=== PATIENT | female | born 1990 | race Caucasian/White ===

== ENCOUNTER 2020-05-21 15:56 | Inpatient (IN) ==
[2020-05-21 16:40] LABS: Appearance Urine Clear (Clear); Bilirubin Urine Negative (Negative); Blood Urine Negative (Negative); Color Urine Yellow; Glucose Urine UA Negative (Negative); Ketones Urine Negative (Negative); Leukocyte Esterase Urine Negative (Negative); Nitrite Urine Negative (Negative); Protein Urine Negative (Negative); Specific Gravity Urine 1.009 (1.000-1.030); Urobilinogen Urine Negative (Negative); pH Urine 5.5 (4.5-7.5)
[2020-05-21 16:45] LABS: Pregnancy Test, Urine Negative (Negative)
[2020-05-21 16:53] LABS: Basophils # (auto) 0.03 K/uL (0-0.2); Basophils % (auto) 0.5 %; Eosinophils # (auto) 0.07 K/uL (0-0.5); Eosinophils % (auto) 1.1 %; Hematocrit (blood only) 45.5 % (37-47); Hemoglobin 15.8 g/dL (12.0-16.0); Immature Granulocytes # (auto) 0.01 K/uL (0.00-0.02); Immature Granulocytes % (auto) 0.2 %; Lymphocytes # (auto) 1.12 K/uL (1.2-3.4); Lymphocytes % (auto) 17.5 %; Mean Corpuscular Hemoglobin 32.2 pg (25-34); Mean Corpuscular Hgb Conc 34.7 g/dL (32-36); Mean Corpuscular Volume 92.7 fL (80-100); Mean Platelet Volume 11.5 fL (7.4-10.4); Monocytes # (auto) 0.39 K/uL (0.11-0.59); Monocytes % (auto) 6.1 %; Neutrophils # (auto) 4.78 K/uL (1.4-6.5); Neutrophils % (auto) 74.6 %; Platelet Count 239 K/uL (130-400); RDW Standard Deviation 40.8 fL (36.4-46.3); Red Blood Count 4.91 M/uL (4.2-5.4)
[2020-05-21 17:03] LABS: Amphetamines+Metham, Urine Neg (Neg); Barbiturates, Urine Neg (Neg); Benzodiazepine, Urine Neg (Neg); Cocaine, Urine Neg (Neg); MDMA (Ecstacy), Urine Pos (Neg); Methadone, Urine Neg (Neg); Opiate, Urine Neg (Neg); Phencyclidine, Urine Neg (Neg)
[2020-05-21 17:11] LABS: BUN Creatinine Ratio 7.3 (10-20); Calcium 9.3 mg/dl (8.5-10.1); Creatinine Clr Calc Pharmacy 93.7 ml/min; Est GFR (African American) 100.2; Est GFR (Non-African American) 86.5; Potassium 3.8 mmol/L (3.5-5.1)
[2020-05-21 17:15] LABS: Acetaminophen < 2 ug/ml (10-30)
[2020-05-21 17:16] LABS: Salicylate 3.6 mg/dl (2.8-20)
[2020-05-21 17:21] LABS: Albumin Globulin Ratio 1.1 (0.9-2); Bilirubin,Total 0.4 mg/dl (0.2-1); Globulin 3.8 gm/dl (2.5-4.0); Thyroid Stimulating Hormone 1.3 uIu/ml (0.300-4.500); Total Protein 7.8 gm/dl (6.4-8.2)
[2020-05-21] MEDS ORDERED: LORazepam 1 MG TAB SL STA (19:55)
--- NOTE | 2020-05-21 20:03 | Emergency Department Note ---
Impression & Plan Suicidal ideation ED Provider Note NAME: CHRISTINA JENSEN AGE: 29 SEX: F ARRIVES VIA: Walk-In INFORMANT: Patient, ED PROVIDER(S): Brina Pickard MD CHIEF COMPLAINT: Suicidal ideation PLAN: Disposition: Condition: Good Referral: Inpatient MEDICAL DECISION MAKING: This patient was evaluated and appeared to be in no significant distress. The patient was forthcoming with her thoughts of suicide and her plan for overdose. She admits that today is the first day that she thought of overdosing on pills but it scared her and she felt unsafe with herself at home. She has multiple stressors including financial, work and relationship. The patient was medically cleared and evaluated by the psychiatric pillowcase turner. She became somewhat agitated when the discussion of inpatient stay was brought up. She felt that her "support system" would be from her. The patient was handed a questionnaire regarding her suicidal thoughts after this discussion and she again reiterated in written format her recurrent thoughts of suicide, thoughts of overdosing on pills, and that life was no longer worth living. At this time the patient will be referred for inpatient psychiatric care. She was given Ativan 1 mg sublingually in the emergency department. Triage Nursing notes reviewed. Prior medical records reviewed Vital Signs: reviewed and remarkable for no significant abnormalities Differential diagnosis: Mood disorder, infection, hypoglycemia, electrolyte abnormalities, cardiac sources, intracerebral event, toxicologic, trauma, neurologic, as well as other pathologies. ER treatment provided: SL ativan Laboratory studies: See below Consultation(s): 3 S. HPI: This patient is a 29-year-old female who presents emergency department with complaints of suicidal ideation. Patient states she is anxious and has "multiple things happening." She was referred to the emergency department by her therapist after the patient contacted her by phone. She called her as she was feeling unsafe at home. She began at 2 PM today having thoughts of overdosing on pills. She states she is having relationship issues as she and her are considering divorce. She is having difficulty with work. She is not eating well but denies any knowledge of significant weight loss. She states she has not sleeping well. The patient denies any significant alcohol intake or substance abuse otherwise. She states she is taking her prescribed medications regularly. She is scheduled to see [facility] in June for medication management, currently her PCP prescribes her medications. ROS: See above HPI for pertinent positives & negatives. A total of 10 systems reviewed and were otherwise negative. PAST MEDICAL HISTORY:See Below PAST SURGICAL HISTORY:See Below FAMILY HISTORY:See Below SOCIAL HISTORY:See Below HOME MEDICATIONS:See Below ALLERGIES:See Below PHYSICAL EXAMINATION: Vital signs reviewed. General: Well-appearing 29 yo female, in no significant distress. HEENT: No scleral icterus, PERRLA, neck supple. Atraumatic. Cardiovascular: Regular rate and rhythm, no extra sounds. Pulmonary: Clear to auscultation bilaterally, normal work of breathing. Abdomen: Soft, nontender, nondistended, positive bowel sounds. Musculoskeletal: Atraumatic, no peripheral edema. Neurologic: Patient awake alert and oriented x 3 Psych: Positive SI with plan, negative HI. Skin: Warm, dry, no rash Brina Pickard MD Past Med/Surg History Medical History Depression Social History Smoking Status: Never smoker Preferred Language: Iranian Communication Ability: Effective Utility Operator Required: No Beliefs That Will Affect Care: None marital status: Feels Safe at Home: Yes Assistive Devices: Glasses Allergies Allergies Allergy/AdvReac Type Severity Reaction Status Date / Time No Known Allergies Allergy Verified 05/21/20 16:32 Home Meds Home Medications Medication Instructions Recorded Confirmed dicyclomine 20 mg PO QID PRN 05/21/20 05/21/20 escitalopram oxalate [Lexapro] 20 mg PO HS 05/21/20 05/21/20 lorazepam 0.5 mg PO HS PRN 05/21/20 05/21/20 rizatriptan 0 mg PO .COMPLEX PRN 05/21/20 05/21/20 bupropion HCl 150 mg PO DAILY 05/22/20 05/22/20 norethindrone-e.estradiol-iron 1 tab PO HS 05/22/20 05/22/20 [05/21 ()] Results & Data (ED) Vital Signs Vital Signs - 24 hr 05/21/20 19:58 Pulse Rate [Right Finger] 108 H Respiratory Rate 20 Respiratory Effort / Characteristics Non-Labored Spontaneous Respiratory Depth Normal Respiratory Pattern Regular Blood Pressure [Right Arm] 127/98 Blood Pressure Mean [Right Arm] 107 Pulse Oximetry 98 Oxygen Delivery Method Room Air Home Medications Current Medication List: was personally reviewed by me Laboratory Data Attestation: I reviewed the patient's lab results. Result diagrams: 05/21/20 16:37 05/21/20 16:37 Lab Results 05/21/20 05/21/20 05/21/20 Range/Units 16:08 16:08 16:08 WBC (4.8-10.8) K/uL RBC (4.2-5.4) M/uL Hgb (12.0-16.0) g/dL Hct (37-47) % MCV (80-100) fL MCH (25-34) pg MCHC (32-36) g/dL RDW Std Deviation (36.4-46.3) fL RDW Coeff of Capo (11.5-14.5) % Plt Count (130-400) K/uL MPV (7.4-10.4) fL Immature Gran % (Auto) % Neut % (Auto) % Lymph % (Auto) % [place] % (Auto) % Eos % (Auto) % Baso % (Auto) % Neut # (Auto) (1.4-6.5) K/uL Lymph # (Auto) (1.2-3.4) K/uL [place] # (Auto) (0.11-0.59) K/uL Eos # (Auto) (0-0.5) K/uL Baso # (Auto) (0-0.2) K/uL Immature Gran # (Auto) (0.00-0.02) K/uL Sodium (136-145) mmol/L Potassium (3.5-5.1) mmol/L Chloride (98-107) mmol/L Carbon Dioxide (21-32) mmol/L Anion Gap (3-11) BUN (7-18) mg/dl Creatinine (0.6-1.2) mg/dl Est Cr Clr Drug Dosing ml/min Est GFR ( Amer) Est GFR (Non-Af Amer) BUN/Creatinine Ratio (10-20) Glucose (70-99) mg/dl Calcium (8.5-10.1) mg/dl Total Bilirubin (0.2-1) mg/dl AST (15-37) U/L ALT (12-78) U/L Alkaline Phosphatase (45-117) U/L Total Protein (6.4-8.2) gm/dl Albumin (3.4-5.0) gm/dl Globulin (2.5-4.0) gm/dl Albumin/Globulin Ratio (0.9-2) TSH (0.300-4.500) uIu/ml Urine Color Yellow Urine Appearance Clear (Clear) Urine pH 5.5 (4.5-7.5) Ur Specific [place] 1.009 (1.000-1.030) Urine Protein Negative (Negative) Urine Glucose (UA) Negative (Negative) Urine Ketones Negative (Negative) Urine Blood Negative (Negative) Urine Nitrite Negative (Negative) Urine Bilirubin Negative (Negative) Urine Urobilinogen Negative (Negative) Ur Leukocyte Esterase Negative (Negative) Urine Test Negative (Negative) Salicylates (2.8-20) mg/dl Urine Opiates Screen Neg (Neg) Ur Methadone, Qual Neg (Neg) Acetaminophen (10-30) ug/ml Urine Barbiturates Neg (Neg) Ur Phencyclidine (PCP) Neg (Neg) U Amphetamin/Meth Scrn Neg (Neg) MDMA (Ecstasy) Screen Pos H (Neg) U Benzodiazepines Scrn Neg (Neg) Ur Cocaine Metabolite Neg (Neg) U Marijuana (THC) Screen Neg (Neg) Ethyl Alcohol mg/dL (0-3) mg/dl 05/21/20 05/21/20 05/21/20 Range/Units 16:37 16:37 16:37 WBC 6.40 (4.8-10.8) K/uL RBC 4.91 (4.2-5.4) M/uL Hgb 15.8 (12.0-16.0) g/dL Hct 45.5 (37-47) % MCV 92.7 (80-100) fL MCH 32.2 (25-34) pg MCHC 34.7 (32-36) g/dL RDW Std Deviation 40.8 (36.4-46.3) fL RDW Coeff of Capo 12.0 (11.5-14.5) % Plt Count 239 (130-400) K/uL MPV 11.5 H (7.4-10.4) fL Immature Gran % (Auto) 0.2 % Neut % (Auto) 74.6 % Lymph % (Auto) 17.5 % [place] % (Auto) 6.1 % Eos % (Auto) 1.1 % Baso % (Auto) 0.5 % Neut # (Auto) 4.78 (1.4-6.5) K/uL Lymph # (Auto) 1.12 L (1.2-3.4) K/uL [place] # (Auto) 0.39 (0.11-0.59) K/uL Eos # (Auto) 0.07 (0-0.5) K/uL Baso # (Auto) 0.03 (0-0.2) K/uL Immature Gran # (Auto) 0.01 (0.00-0.02) K/uL Sodium 137 (136-145) mmol/L Potassium 3.8 (3.5-5.1) mmol/L Chloride 106 (98-107) mmol/L Carbon Dioxide 25 (21-32) mmol/L Anion Gap 6.0 (3-11) BUN 7 (7-18) mg/dl Creatinine 0.91 (0.6-1.2) mg/dl Est Cr Clr Drug Dosing 93.7 ml/min Est GFR ( Amer) 100.2 Est GFR (Non-Af Amer) 86.5 BUN/Creatinine Ratio 7.3 L (10-20) Glucose 101 H (70-99) mg/dl Calcium 9.3 (8.5-10.1) mg/dl Total Bilirubin 0.4 (0.2-1) mg/dl AST 8 L (15-37) U/L ALT 16 (12-78) U/L Alkaline Phosphatase 59 (45-117) U/L Total Protein 7.8 (6.4-8.2) gm/dl Albumin 4.0 (3.4-5.0) gm/dl Globulin 3.8 (2.5-4.0) gm/dl Albumin/Globulin Ratio 1.1 (0.9-2) TSH 1.300 (0.300-4.500) uIu/ml Urine Color Urine Appearance (Clear) Urine pH (4.5-7.5) Ur Specific [place] (1.000-1.030) Urine Protein (Negative) Urine Glucose (UA) (Negative) Urine Ketones (Negative) Urine Blood (Negative) Urine Nitrite (Negative) Urine Bilirubin (Negative) Urine Urobilinogen (Negative) Ur Leukocyte Esterase (Negative) Urine Test (Negative) Salicylates 3.6 (2.8-20) mg/dl Urine Opiates Screen (Neg) Ur Methadone, Qual (Neg) Acetaminophen < 2 L (10-30) ug/ml Urine Barbiturates (Neg) Ur Phencyclidine (PCP) (Neg) U Amphetamin/Meth Scrn (Neg) MDMA (Ecstasy) Screen (Neg) U Benzodiazepines Scrn (Neg) Ur Cocaine Metabolite (Neg) U Marijuana (THC) Screen (Neg) Ethyl Alcohol mg/dL (0-3) mg/dl 05/21/20 Range/Units 16:37 WBC (4.8-10.8) K/uL RBC (4.2-5.4) M/uL Hgb (12.0-16.0) g/dL Hct (37-47) % MCV (80-100) fL MCH (25-34) pg MCHC (32-36) g/dL RDW Std Deviation (36.4-46.3) fL RDW Coeff of Capo (11.5-14.5) % Plt Count (130-400) K/uL MPV (7.4-10.4) fL Immature Gran % (Auto) % Neut % (Auto) % Lymph % (Auto) % [place] % (Auto) % Eos % (Auto) % Baso % (Auto) % Neut # (Auto) (1.4-6.5) K/uL Lymph # (Auto) (1.2-3.4) K/uL [place] # (Auto) (0.11-0.59) K/uL Eos # (Auto) (0-0.5) K/uL Baso # (Auto) (0-0.2) K/uL Immature Gran # (Auto) (0.00-0.02) K/uL Sodium (136-145) mmol/L Potassium (3.5-5.1) mmol/L Chloride (98-107) mmol/L Carbon Dioxide (21-32) mmol/L Anion Gap (3-11) BUN (7-18) mg/dl Creatinine (0.6-1.2) mg/dl Est Cr Clr Drug Dosing ml/min Est GFR ( Amer) Est GFR (Non-Af Amer) BUN/Creatinine Ratio (10-20) Glucose (70-99) mg/dl Calcium (8.5-10.1) mg/dl Total Bilirubin (0.2-1) mg/dl AST (15-37) U/L ALT (12-78) U/L Alkaline Phosphatase (45-117) U/L Total Protein (6.4-8.2) gm/dl Albumin (3.4-5.0) gm/dl Globulin (2.5-4.0) gm/dl Albumin/Globulin Ratio (0.9-2) TSH (0.300-4.500) uIu/ml Urine Color Urine Appearance (Clear) Urine pH (4.5-7.5) Ur Specific [place] (1.000-1.030) Urine Protein (Negative) Urine Glucose (UA) (Negative) Urine Ketones (Negative) Urine Blood (Negative) Urine Nitrite (Negative) Urine Bilirubin (Negative) Urine Urobilinogen (Negative) Ur Leukocyte Esterase (Negative) Urine Test (Negative) Salicylates (2.8-20) mg/dl Urine Opiates Screen (Neg) Ur Methadone, Qual (Neg) Acetaminophen (10-30) ug/ml Urine Barbiturates (Neg) Ur Phencyclidine (PCP) (Neg) U Amphetamin/Meth Scrn (Neg) MDMA (Ecstasy) Screen (Neg) U Benzodiazepines Scrn (Neg) Ur Cocaine Metabolite (Neg) U Marijuana (THC) Screen (Neg) Ethyl Alcohol mg/dL < 3.0 (0-3) mg/dl Administered Medications Acetaminophen (Acetaminophen 325 Mg Tab) 650 mg PO Q4H PRN PRN Reason: Headache or Minor Fever Stop: 06/20/20 21:49 Last Admin: 05/22/20 00:09 Dose: 650 mg Documented by: [id number] Bupropion HCl (Bupropion Xl 150 Mg Tabcr) 150 mg PO DAILY NICKY Stop: 06/21/20 11:14 Last Admin: 05/22/20 12:37 Dose: 150 mg Documented by: [id number] Hydroxyzine HCl (Hydroxyzine Hcl 25 Mg Tab) 50 mg PO HSZ PRN PRN Reason: Insomnia Stop: 06/20/20 21:49 Last Admin: 05/22/20 01:15 Dose: 50 mg Documented by: [id number] Discontinued Medications Lorazepam (Lorazepam 1 Mg Tab) 1 mg SL NOW STA Stop: 05/21/20 19:56 Last Admin: 05/21/20 20:10 Dose: 1 mg Documented by: [id number] Discharge Plan Visit Data Chief Complaint: Mental Health Evaluation Stated Complaint: [facility] ED Provider: Brina Pickard Discharge Problem: Suicidal ideation Patient Disposition: Admitted As Inpatient Discharge Instructions Interventions: ED Discharge Assessment Last Done: 05/21/20 22:17
[2020-05-21] MEDS ORDERED: BISMUTH SUBSALICYLATE LIQD 236 ML PO PRN (21:50)
[2020-05-21] MEDS ORDERED: hydrOXYzine HCl 25 MG TAB PO PRN ×2 (21:50)
[2020-05-21] MEDS ORDERED: MAGNESIUM HYDROXIDE SUSP 30 ML UDC PO PRN (21:50)
[2020-05-21] MEDS ORDERED: SODIUM CHLORIDE 0.65% NA SOLN 45 ML (OCEAN) PRN (21:50)
[2020-05-21] MEDS ORDERED: ACETAMINOPHEN 325 MG TAB PO PRN (21:50)
[2020-05-21] MEDS ORDERED: ALUMINUM/MAGNESIUM SUSP 30 ML UDC PO PRN (21:50)
--- NOTE | 2020-05-22 09:06 | History & Physical ---
Date of Service May 22, 2020 Impression / Recommendations (1) Suicidal ideation: Continue voluntary hospitalization, suicide checks for safety. Encourage group attendance and participation, work on healthy coping skills and discharge safety plan. Family meeting as appropriate (2) Depression: 05/22 - Reviewed diagnoses and treatment options, including medications and therapy. Reviewed medication options including continuing current medications and giving them more time to see full effect, trial of a different SSRI or SNRI. After discussion of options she opted to continue with her current medications. She would like to focus on working on self compassion. Coordinate w/ her OP therapy and [facility]/OP treatment. Active/Remission status: currently active Depression Type: major depressive disorder Major depression episode severity: severe Major depression recurrence: recurrent Psychotic features: without psychotic features Qualified Code(s): F33.2 - Major depressive disorder, recurrent severe without psychotic features (3) Anxiety: 05/22 - CURTIS with panic, continue home medications, including lorazepam prn, can also offer hydroxyzine prn Risk Factors Assessment Male: No : Yes Health Problems: No Mental Health Diagnoses: Yes Substance Use Disorders: No Previous Attempt: No Family History of Suicide: No Previous Psychiatric Hospitalization: No Hopelessness: Yes Smoker: No Protective Factors Assessment : Yes Responsible for Young Children: No Employed: Yes Stable Relationships: No Good Rapport with Provider: Yes Psychiatric History Identifying Data CHRISTINA JENSEN is a 29-year-old F who currently lives in [place], has a history of depression and anxiety, treated by her PCP, and was admitted on 05/21/20 21:50 on a 201 voluntary commitment for depression and suicidality. Chief Complaint "Yesterday I had a panic attack, and I recently relapsed into self harming...and the thought came into my mind that I could just take a bunch of Aspirin". History of Present Illness Patient presented to the ER with depression and suicidal thoughts with a plan to overdose. She reported multiple stressors, including marital strain and problems at work. She was tearful throughout the ER assessment, and reported struggling with depression since she was a teenager, with worsening over the past 2 months. She found it increasingly difficult to get out of bed, reported frequent crying spells, lack of motivation, decreased appetite, difficulty sleeping, and increased anxiety. She reported difficulty falling and staying asleep, getting 4-6 hours a night. She reported passive suicidal thoughts in the past, thinking that if something happened to her and she she would not care, which recently progressed to plans to overdose and access to medications at home. She did not feel safe at home, so came to the ER. She reported a history of cutting as a teen, and recently started cutting herself again, using a knife on her arms. Last episode of cutting was about 2 days ago, and she had superficial cuts on her left arm. Admission labs normal with the exception of UDS + MDMA (on Wellbutrin, confirmatory pending). She signed in voluntarily for treatment. On my assessment, she reports worsening mood and anxiety for the past 2 months, with acute worsening yesterday in the context of a panic attack, as she felt overwhelmed, a sense of derealization, and thought about taking an overdose of Aspirin to end her life. She came to the hospital "to be somewhere where I feel safe, be somewhere secure." She reports panic with "crying until I throw up," hyperventilating and feeling restless and a sense of unease, which occurred approximately 6 times in the past year, typically triggered by relationship stress. Her panic attack yesterday was triggered by issues she has been working through in therapy, revolving around her marriage and feeling that her emotional needs aren't met, falling in love with a coworker and having an affair with him, and his and her finding out in Nov. She has been experiencing significant guilt and negative thoughts about herself, worried about her job security, and how to interact with the man at work. She and her have been working on their relationship, but the coworker has cut off all contact with her, although they still have to collaborate on work projects, and have been trying to do so via email. She feels guilty about the affair but also feels she is grieving the loss of the relationship, and can't be open with her about that. She is looking for another job which could relieve the job stress, but also considering moving back home to the [place] area, and undecided about rebuilding or ending her marriage. Yesterday she was trying to communicate with her coworker "to get some kind of closure" and understand how he could cut the relationship off after he'd told her he needed her to be in his life, and feels he has given her mixed messages. He was "cold" when they spoke and "my heart broke." She had another meeting with him and others from work later in the day and cried throughout it. She has been hurt by him ignoring her when she's tried to reach out to him, feels he moved on quickly and doesn't miss her. She reports guilt and shame, feeling "I did this to myself, what did I expect would happen." Mood was better when she was off work over the holidays, as she was able to focus on other things, but worsened when she returned to work earlier this month and had contact with him again. She has been on escitalopram since college, was stable on 10mg for a time (although thinks it has caused decreased sex drive), and it was increased from 10mg to 20mg in 07/2019. Bupropion was added a week ago as she was struggling to get out of bed and function, everything took an effort. She was keeping up with work, but only the bare minimum. She felt jittery the first day, and the next day energy was excessive, was shaky, sweaty palms, and dry mouth, which have continued off and on since then but improving overall. She enjoys making art, painting, but has struggled to engage in those activities due to low motivation and energy. Her appetite has been decreased, not eating much throughout the day, but bingeing at night. Denies changes in weight. Her PCP prescribed Ativan about 2 months ago, which she has been taking about every other night, with only minimal effect. Has also tried Zquil, melatonin, and breathing exercises with little benefit. Tends to ruminate at night. No h/o lorenzo, psychosis. Past Psychiatric History Previous Psych History: First diagnosed with depression and CURTIS in college (in the context of relationship stressors), saw a psychiatrist in her hometown in [place] and was started on escitalopram, which she has been on since. Saw that psychiatrist for several years until she retired, then transferred care to her PCP, as symptoms were stable. CBT in college. She saw a psychiatrist through [facility] in 01/2020, but didn't want to continue with that person. Current Psychiatric Diagnosis: Generalized anxiety, depression Outpatient Services: Has an initial evaluation scheduled at [facility] in June. Therapist: Klarissa Escalante at [facility] since 08/2019. PCP, Dr. Rachael Samayoa, is prescribing antidepressants currently. Previous Psych Admissions: Denies History of Previous Suicide Attempt: No Past Medication Trials: None Allergies Allergy/AdvReac Type Severity Reaction Status Date / Time No Known Allergies Allergy Verified 05/21/20 16:32 Home Medications Medication Instructions Recorded Confirmed Type dicyclomine 20 mg PO QID PRN 05/21/20 05/21/20 History escitalopram oxalate [Lexapro] 20 mg PO HS 05/21/20 05/21/20 History lorazepam 0.5 mg PO HS PRN 05/21/20 05/21/20 History rizatriptan 0 mg PO .COMPLEX PRN 05/21/20 05/21/20 History bupropion HCl 150 mg PO DAILY 05/22/20 05/22/20 History norethindrone-e.estradiol-iron 1 tab PO HS 05/22/20 05/22/20 History [05/21 (28)] Alcohol History Hx of Alcohol Use Over the Past 12 Months: Yes (Social, twice monthly) AUDIT Total Score: 2 Smoking Use Have You Smoked or Used Tobacco Products in the Last 30 Days: No Smoking Status: Never smoker Substance History Hx of Prescription Med Misuse Over the Past 12 Months: No Hx of Over the Counter Med Misuse Over the Past 12 Months: No Hx of Inhalent Misuse Over the Past 12 Months: No Hx of Organic Substance Use Over the Past 12 Months: No Hx of Illegal Substances/Street Drug Use Over Past 12 Months: No Problems as a Result of Past Substance Use: None Identified Personal History Living Arrangements: Home Living Arrangements Comments: In [place] with her Childhood: From the [place] area Highest Grade Completed: College 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) Marital Status: (For a little over a year, but contemplating separation or divorce) Beliefs That Will Affect Care: None Patient History Medical History (Updated 05/22/20 @ 09:03 by Regina Abreu MD) Depression Social History Smoking Status: Never smoker Preferred Language: Swedish Communication Ability: Effective Retail Worker Required: No Beliefs That Will Affect Care: None Feels Safe at Home: Yes Assistive Devices: Glasses Review of Systems Review of Systems: All systems reviewed & are unremarkable except as noted in Subjective Physical Exam Psychiatric: Orientation: alert, oriented x 3 and cooperative Apperance: appropriately dressed, appropriately groomed and appeared stated age Eye Contact: good eye contact Motor Behavior: steady gait and station and no abnormal motor movements Speech: normal rate/rhythm/volume of speech Af fect: + depressed affect, + anxious affect and mood congruent with affect Mood: + depressed mood and + anxious mood Thought Process: goal directed thought process and linear/logical thought process Thought Content: reality based without delusions and + guilt Suicidal Thoughts: denies suicidal thoughts Homicidal Thoughts: denies homicidal thoughts Hallucinations: no auditory hallucinations and no visual hallucinations Cognition: recent memory grossly intact, remote memory grossly intact, attention grossly intact and language grossly intact Estimated Intelligence: + above average estimated intelligence Insight: good insight Judgement: good judgement Vital Signs (Past 24 Hours): Last Vital Signs Temp 36.6 C 05/22/20 06:32 Pulse 77 05/22/20 06:33 Resp 16 05/22/20 06:32 BP 138/92 05/22/20 06:33 Pulse Ox 99 05/21/20 22:17 Results & Data ([facility]) Laboratory Results Laboratory Results - last 24 hr 05/21/20 05/21/20 05/21/20 16:08 16:08 16:08 WBC RBC Hgb Hct MCV MCH MCHC RDW Std Deviation RDW Coeff of Capo Plt Count MPV Immature Gran % (Auto) Neut % (Auto) Lymph % (Auto) Colbert % (Auto) Eos % (Auto) Baso % (Auto) Neut # (Auto) Lymph # (Auto) Colbert # (Auto) Eos # (Auto) Baso # (Auto) Immature Gran # (Auto) Sodium Potassium Chloride Carbon Dioxide Anion Gap BUN Creatinine Est Cr Clr Drug Dosing Est GFR ( Amer) Est GFR (Non-Af Amer) BUN/Creatinine Ratio Glucose Calcium Total Bilirubin AST ALT Alkaline Phosphatase Total Protein Albumin Globulin Albumin/Globulin Ratio TSH Urine Color Yellow Urine Appearance Clear Urine pH 5.5 Ur Specific [place] 1.009 Urine Protein Negative Urine Glucose (UA) Negative Urine Ketones Negative Urine Blood Negative Urine Nitrite Negative Urine Bilirubin Negative Urine Urobilinogen Negative Ur Leukocyte Esterase Negative Urine Test Negative Salicylates Urine Opiates Screen Neg Ur Methadone, Qual Neg Acetaminophen Urine Barbiturates Neg Ur Phencyclidine (PCP) Neg U Amphetamin/Meth Scrn Neg Urine MDEA MDMA (Ecstasy) Screen Pos H MDMA Urine MDMA U Benzodiazepines Scrn Neg Ur Cocaine Metabolite Neg U Marijuana (THC) Screen Neg Ethyl Alcohol mg/dL SARS-CoV-2 Ag (Rapid) 05/21/20 05/21/20 05/21/20 16:08 16:37 16:37 WBC 6.40 RBC 4.91 Hgb 15.8 Hct 45.5 MCV 92.7 MCH 32.2 MCHC 34.7 RDW Std Deviation 40.8 RDW Coeff of Capo 12.0 Plt Count 239 MPV 11.5 H Immature Gran % (Auto) 0.2 Neut % (Auto) 74.6 Lymph % (Auto) 17.5 Colbert % (Auto) 6.1 Eos % (Auto) 1.1 Baso % (Auto) 0.5 Neut # (Auto) 4.78 Lymph # (Auto) 1.12 L Colbert # (Auto) 0.39 Eos # (Auto) 0.07 Baso # (Auto) 0.03 Immature Gran # (Auto) 0.01 Sodium 137 Potassium 3.8 Chloride 106 Carbon Dioxide 25 Anion Gap 6.0 BUN 7 Creatinine 0.91 Est Cr Clr Drug Dosing 93.7 Est GFR ( Amer) 100.2 Est GFR (Non-Af Amer) 86.5 BUN/Creatinine Ratio 7.3 L Glucose 101 H Calcium 9.3 Total Bilirubin 0.4 AST 8 L ALT 16 Alkaline Phosphatase 59 Total Protein 7.8 Albumin 4.0 Globulin 3.8 Albumin/Globulin Ratio 1.1 TSH 1.300 Urine Color Urine Appearance Urine pH Ur Specific [place] Urine Protein Urine Glucose (UA) Urine Ketones Urine Blood Urine Nitrite Urine Bilirubin Urine Urobilinogen Ur Leukocyte Esterase Urine Test Salicylates Urine Opiates Screen Ur Methadone, Qual Acetaminophen Urine Barbiturates Ur Phencyclidine (PCP) U Amphetamin/Meth Scrn Urine MDEA Pending MDMA (Ecstasy) Screen MDMA Pending Urine MDMA Pending U Benzodiazepines Scrn Ur Cocaine Metabolite U Marijuana (THC) Screen Ethyl Alcohol mg/dL SARS-CoV-2 Ag (Rapid) 05/21/20 05/21/20 05/21/20 16:37 16:37 Unknown WBC RBC Hgb Hct MCV MCH MCHC RDW Std Deviation RDW Coeff of Capo Plt Count MPV Immature Gran % (Auto) Neut % (Auto) Lymph % (Auto) Colbert % (Auto) Eos % (Auto) Baso % (Auto) Neut # (Auto) Lymph # (Auto) Colbert # (Auto) Eos # (Auto) Baso # (Auto) Immature Gran # (Auto) Sodium Potassium Chloride Carbon Dioxide Anion Gap BUN Creatinine Est Cr Clr Drug Dosing Est GFR ( Amer) Est GFR (Non-Af Amer) BUN/Creatinine Ratio Glucose Calcium Total Bilirubin AST ALT Alkaline Phosphatase Total Protein Albumin Globulin Albumin/Globulin Ratio TSH Urine Color Urine Appearance Urine pH Ur Specific [place] Urine Protein Urine Glucose (UA) Urine Ketones Urine Blood Urine Nitrite Urine Bilirubin Urine Urobilinogen Ur Leukocyte Esterase Urine Test Salicylates 3.6 Urine Opiates Screen Ur Methadone, Qual Acetaminophen < 2 L Urine Barbiturates Ur Phencyclidine (PCP) U Amphetamin/Meth Scrn Urine MDEA MDMA (Ecstasy) Screen MDMA Urine MDMA U Benzodiazepines Scrn Ur Cocaine Metabolite U Marijuana (THC) Screen Ethyl Alcohol mg/dL < 3.0 SARS-CoV-2 Ag (Rapid) Negative Current Inpatient Medications Current Inpatient Medications: Current Inpatient Medications Acetaminophen (Acetaminophen 325 Mg Tab) 650 mg PO Q4H PRN PRN Reason: Headache or Minor Fever Stop: 06/20/20 21:49 Last Admin: 05/22/20 00:09 Dose: 650 mg Documented by: Al Hydrox/Mg Hydrox/Simethicone (Aluminum/Magnesium Susp 30 Ml Udc) 30 ml PO Q4H PRN PRN Reason: GI Upset Stop: 06/20/20 21:49 Bismuth Subsalicylate (Bismuth Subsalicylate Liqd 236 Ml) 15 ml PO PRN PRN PRN Reason: Loose Stool Stop: 06/20/20 21:49 Hydroxyzine HCl (Hydroxyzine Hcl 25 Mg Tab) 50 mg PO HSZ PRN PRN Reason: Insomnia Stop: 06/20/20 21:49 Last Admin: 05/22/20 01:15 Dose: 50 mg Documented by: Hydroxyzine HCl (Hydroxyzine Hcl 25 Mg Tab) 25 mg PO Q4H PRN PRN Reason: Anxiety Stop: 06/20/20 21:49 Magnesium Hydroxide (Magnesium Hydroxide Susp 30 Ml Udc) 30 ml PO DAILY PRN PRN Reason: Constipation Stop: 02/19/21 21:49 Sodium Chloride (Sodium Chloride 0.65% Na Soln 45 Ml ([employer])) 1 - 2 sprays NA PRN PRN PRN Reason: Nasal Dryness/Congestion Stop: 06/20/20 21:49
[2020-05-22] MEDS ORDERED: DICYCLOMINE HCL 20 MG TAB PO PRN (10:20)
[2020-05-22] MEDS ORDERED: RIZATRIPTAN BENZOATE MLT 10 MG TAB PO PRN (10:25)
[2020-05-22] MEDS ORDERED: buPROPion SR 150 MG TABCR PO SCH (10:45)
[2020-05-22] MEDS: buPROPion XL 150 MG TABCR PO SCH (12:37)
[2020-05-22] MEDS: ESCITALOPRAM OXALATE 20 MG TAB PO SCH (21:29)
[2020-05-22] MEDS: JUNEL FE PO SCH (21:30)
[2020-05-22] MEDS: LORazepam 0.5 MG TAB PO PRN (23:50)
--- NOTE | 2020-05-23 09:41 | Psychiatric Progress Note ---
Date of Service May 23, 2020 Impression / Recommendations (1) Suicidal ideation: Continue voluntary hospitalization, suicide checks for safety. Encourage group attendance and participation, work on healthy coping skills and discharge safety plan. Family meeting as appropriate 05/23 - Pt now denying SI - Family meeting today with - Pt encouraged to begin working on her written safety plan (2) Depression: 05/22 - Reviewed diagnoses and treatment options, including medications and therapy. Reviewed medication options including continuing current medications and giving them more time to see full effect, trial of a different SSRI or SNRI. After discussion of options she opted to continue with her current medications. She would like to focus on working on self compassion. Coordinate w/ her OP therapy and [place]/OP treatment. 05/23 - Continue current medication regimen - we did discuss brief symptoms of "jitteriness", shaking, increased productivity, and difficulty concentrating for 1-2 days after starting bupropion (prior to hospitalization). Pt educated signs and symptoms of bipolar disorder and encouraged to continue to monitor, especially with future medication adjustments. Pt does report having an uncle with bipolar disorder. - Family meeting conducted today via phone with , patient perceived the meeting went well and both are considering couples counseling - Continue to encourage participation in group and recreational programming, as well as development of healthy and effective coping strategies - Pt encouraged to begin working on her written safety plan (3) Anxiety: 05/22 - CURTIS with panic, continue home medications, including lorazepam prn, can also offer hydroxyzine prn 05/23 - Continue as above, encourage development of healthy and effective coping s trategies - Continue individual therapy as outpatient Risk Factors Assessment Male: No : Yes Health Problems: No Mental Health Diagnoses: Yes Substance Use Disorders: No Previous Attempt: No Family History of Suicide: No Previous Psychiatric Hospitalization: No Hopelessness: Yes Smoker: No Protective Factors Assessment : Yes Responsible for Young Children: No Employed: Yes Stable Relationships: No Good Rapport with Provider: Yes Interval History Identifying Information CHRISTINA JENSEN is a 29-year-old F who currently lives in [place], has a history of depression and anxiety, treated by her PCP, and was admitted on 05/21/20 21:50 on a 201 voluntary commitment for depression and suicidality. Chief Complaint "I guess the best way I can describe how helpful this has been is like, it was the pause button I needed." Review of Systems Notes Constitutional: admits to poor sleep at baseline, worse in hospital setting Cardiovascular: denied Respiratory: denied Gastrointestinal: denied Neurological: denied Psychiatric: denies symptoms other than stated above Total of at least 10 systems reviewed, pertinent positives as above and in HPI. Sleep Information Total Hours of Sleep: 4.5 Meal Information Percent Meal Consumed - Lunch: 75 Percent Meal Consumed - Dinner: 90 Subjective Subjective Patient was seen & assessed and interval progress reviewed with treatment team. Staff report the patient has been participating in group programming, often engaging in long 1:1 sessions with staff when able. She demonstrates good insight during these conversations. Pt rated her mood a 6/10 and "slightly anxious" last evening. Pt was seen today to assess progress since admission, following a phone meeting with her and our child welfare social worker. Pt states she feels her stay has been helpful - "it was the pause button I needed." Pt states that she feels she is ready to "start the healing stage" after the end of an extramarital relationship, recognizing her focus is on communication with her but simultaneous focused on grief as well. Pt is open to couple's counseling and is hoping to work with her to arrange this. Pt states she has been surprised by "the way I was thinking and approaching things", recognizing things were "unhealthy and not sustainable, I'm surprised I lasted in that mindset for 2 months." Pt denies continued SI and reports "I feel better now than I have in the past month." We did review her medication regimen, although recognizing she had requested to keep medications unchanged. That conversation allowed patient to express some brief side effects she experienced for 1-2 days after starting bupropion. Pt states she felt "jittery", as though her heart was racing, and shaking in her hands/feet. Pt also admits that she felt "almost manic", reporting "I got a crap load of work done" and that she had some difficulty thinking/concentrating. This led to a conversation about a possible bipolar component to the patient's mood. She admits all of these concerns quickly resolved, but was encouraged to closely monitor for recurrence. Pt was also encouraged to disclose these symptoms to her outpatient providers prior to considering any other medication adjustments. Pt denied other needs at this time and does feel she is close to being ready to return home. Physical Exam Psychiatric Orientation: alert, oriented x 3 and cooperative (and pleasant) Apperance: appropriately dressed, appropriately groomed and appeared stated age Eye Contact: good eye contact Motor Behavior: steady gait and station and no abnormal motor movements Speech: normal rate/rhythm/volume of speech Affect: + blunted affect (mildly subdued) and mood congruent with affect Mood: + depressed mood (reports "I still feel sad, but not hopeless") and + anxious mood ("slightly anxious still") Thought Process: goal directed thought process, clear/coherent thought process and thought association intact Thought Content: reality based without delusions; no hopelessness and no worthlessness Suicidal Thoughts: denies suicidal thoughts, denies suicidal plan and denies suicidal intent Homicidal Thoughts: denies homicidal thoughts Hallucinations: no auditory hallucinations and no visual hallucinations Cognition: recent memory grossly intact, attention grossly intact and language grossly intact Estimated Intelligence: + above average estimated intelligence Insight: good insight Judgement: + fair judgement Vital Signs (Past 24 Hours) Last Vital Signs Temp 36.5 C 05/23/20 06:32 Pulse 92 H 05/23/20 06:32 Resp 16 05/23/20 06:32 BP 133/86 05/23/20 06:32 Pulse Ox 99 05/21/20 22:17 Results & Data ([facility]) Current Inpatient Medications Current Inpatient Medications: Current Inpatient Medications Acetaminophen (Acetaminophen 325 Mg Tab) 650 mg PO Q4H PRN PRN Reason: Headache or Minor Fever Stop: 06/20/20 21:49 Last Admin: 05/22/20 00:09 Dose: 650 mg Documented by: Al Hydrox/Mg Hydrox/Simethicone (Aluminum/Magnesium Susp 30 Ml Udc) 30 ml PO Q4H PRN PRN Reason: GI Upset Stop: 06/20/20 21:49 Bismuth Subsalicylate (Bismuth Subsalicylate Liqd 236 Ml) 15 ml PO PRN PRN PRN Reason: Loose Stool Stop: 06/20/20 21:49 Bupropion HCl (Bupropion Xl 150 Mg Tabcr) 150 mg PO DAILY NICKY Stop: 06/21/20 11:14 Last Admin: 05/22/20 12:37 Dose: 150 mg Documented by: Dicyclomine HCl (Dicyclomine Hcl 20 Mg Tab) 20 mg PO QID PRN PRN Reason: Abdominal Discomfort Stop: 06/21/20 10:19 Escitalopram Oxalate (Escitalopram Oxalate 20 Mg Tab) 20 mg PO HS NICKY Stop: 06/21/20 21:59 Last Admin: 05/22/20 21:29 Dose: 20 mg Documented by: Hydroxyzine HCl (Hydroxyzine Hcl 25 Mg Tab) 50 mg PO HSZ PRN PRN Reason: Insomnia Stop: 06/20/20 21:49 Last Admin: 05/22/20 01:15 Dose: 50 mg Documented by: Hydroxyzine HCl (Hydroxyzine Hcl 25 Mg Tab) 25 mg PO Q4H PRN PRN Reason: Anxiety Stop: 06/20/20 21:49 Lorazepam (Lorazepam 0.5 Mg Tab) 0.5 mg PO HS PRN PRN Reason: Insomnia Stop: 06/21/20 10:19 Last Admin: 05/22/20 23:50 Dose: 0.5 mg Documented by: Magnesium Hydroxide (Magnesium Hydroxide Susp 30 Ml Udc) 30 ml PO DAILY PRN PRN Reason: Constipation Stop: 06/20/20 21:49 Non- Formulary Patient's Own Med 1 ea PO HS NICKY Stop: 06/21/20 21:59 Last Admin: 05/22/20 21:30 Dose: 1 mg Documented by: Rizatriptan Benzoate (Rizatriptan Benzoate [employer] 10 Mg Tab) 10 mg PO UD PRN PRN Reason: Migraine Headache Stop: 06/21/20 10:24 Last Admin: 05/23/20 01:36 Dose: 10 mg Documented by: Sodium Chloride (Sodium Chloride 0.65% Na Soln 45 Ml ([place])) 1 - 2 sprays NA PRN PRN PRN Reason: Nasal Dryness/Congestion Stop: 06/20/20 21:49 Mental Health & Subst Abuse Tx Psychiatrist Name of Psychiatrist: Darius Alanis Psychiatrist's Psychiatric Appointment Comment: [id number] [facility] Therapist Name of Therapist: Rahat Cyr Therapist's Therapy Appointment Comment: [address], [address], [place] [address] Veterinary Nurse Name of Veterinary Nurse: None Post Discharge Appointments Primary Care Physician Name Of Family Doctor: Rayo Samayoa Primary Care Provider Appointment Comment: [address] Contact Information Discharge Discharge Address: [id number] (1) Depression Active/Remission status: currently active Depression Type: major depressive disorder Major depression episode severity: severe Major depression recurrence: recurrent Psychotic features: without psychotic features Qualified Code(s): F33.2 - Major depressive disorder, recurrent severe without psychotic features
[2020-05-23] MEDS: buPROPion XL 150 MG TABCR PO SCH (10:37)
[2020-05-23] MEDS: ESCITALOPRAM OXALATE 20 MG TAB PO SCH (22:13)
[2020-05-23] MEDS: JUNEL FE PO SCH (22:13)
[2020-05-23] MEDS: LORazepam 0.5 MG TAB PO PRN (23:39)
[2020-05-24] MEDS: buPROPion XL 150 MG TABCR PO SCH (09:10)
--- NOTE | 2020-05-24 09:30 | Discharge Summary ---
Date of Service May 24, 2020 History of Present Illness Patient presented to the ER with depression and suicidal thoughts with a plan to overdose. She reported multiple stressors, including marital strain and problems at work. She was tearful throughout the ER assessment, and reported struggling with depression since she was a teenager, with worsening over the past 2 months. She found it increasingly difficult to get out of bed, reported frequent crying spells, lack of motivation, decreased appetite, difficulty sleeping, and increased anxiety. She reported difficulty falling and staying asleep, getting 4-6 hours a night. She reported passive suicidal thoughts in the past, thinking that if something happened to her and she she would not care, which recently progressed to plans to overdose and access to medications at home. She did not feel safe at home, so came to the ER. She reported a history of cutting as a teen, and recently started cutting herself again, using a knife on her arms. Last episode of cutting was about 2 days ago, and she had superficial cuts on her left arm. Admission labs normal with the exception of UDS + MDMA (on Wellbutrin, confirmatory pending). She signed in voluntarily for treatment. On my assessment, she reports worsening mood and anxiety for the past 2 months, with acute worsening yesterday in the context of a panic attack, as she felt overwhelmed, a sense of derealization, and thought about taking an overdose of Aspirin to end her life. She came to the hospital "to be somewhere where I feel safe, be somewhere secure." She reports panic with "crying until I throw up," hyperventilating and feeling restless and a sense of unease, which occurred approximately 6 times in the past year, typically triggered by relationship stress. Her panic attack yesterday was triggered by issues she has been working through in therapy, revolving around her marriage and feeling that her emotional needs aren't met, falling in love with a coworker and having an affair with him, and his and her finding out in Nov. She has been experiencing significant guilt and negative thoughts about herself, worried about her job security, and how to interact with the man at work. She and her have been working on their relationship, but the coworker has cut off all contact with her, although they still have to collaborate on work projects, and have been trying to do so via email. She feels guilty about the affair but also feels she is grieving the loss of the relationship, and can't be open with her about that. She is looking for another job which could relieve the job stress, but also considering moving back home to the [place] area, and undecided about rebuilding or ending her marriage. Yesterday she was trying to communicate with her coworker "to get some kind of closure" and understand how he could cut the relationship off after he'd told her he needed her to be in his life, and feels he has given her mixed messages. He was "cold" when they spoke and "my heart broke." She had another meeting with him and others from work later in the day and cried throughout it. She has been hurt by him ignoring her when she's tried to reach out to him, feels he moved on quickly and doesn't miss her. She reports guilt and shame, feeling "I did this to myself, what did I expect would happen." Mood was better when she was off work over the holidays, as she was able to focus on other things, but worsened when she returned to work earlier this month and had contact with him again. She has been on escitalopram since college, was stable on 10mg for a time (although thinks it has caused decreased sex drive), and it was increased from 10mg to 20mg in 07/2019. Bupropion was added a week ago as she was struggling to get out of bed and function, everything took an effort. She was keeping up with work, but only the bare minimum. She felt jittery the first day, and the next day energy was excessive, was shaky, sweaty palms, and dry mouth, which have continued off and on since then but improving overall. She enjoys making art, painting, but has struggled to engage in those activities due to low motivation and energy. Her appetite has been decreased, not eating much throughout the day, but bingeing at night. Denies changes in weight. Her PCP prescribed Ativan about 2 months ago, which she has been taking about every other night, with only minimal effect. Has also tried Zquil, melatonin, and breathing exercises with little benefit. Tends to ruminate at night. No h/o lorenzo, psychosis. Hospital COurse: Patient was continued on her Wellbutrin XL 150mg/AM, lexapro 20mg, and ativan 0.5mg po qhs prn insomnia. SHe engaged readily in the milieu, groups and with treatment staff to include the therapist and social work staff. SHe had a meeting with spouse disclosing her affair, as well as discussing this with her mother. Both and mother were supportive. is motivated to work on the relationship. She had constipation prior to arrival to unit taking miralax OTC, ongoing evaluation for IBS. SHe is not sure if she is having dry mouth with wellbutrin XL 150mg and is uncertain if constipation has changed. Last week day 1 of wellbutrin she did feel energized and productive but this has not persisted, and energy and motivation have been normal. She was educated by staff on s/sx of hypomania but has not had these in the past nor other than that 1 day of wellbutrin initiation but will monitor. She continues to have initial insomnia preceding the mental health admission and while here, using ativan at hs is able to sleep better. SHe is uncertain is wellbutrin XL 150mg is worsening her insomnia. Overall as the stay progressed she felt less depressed and less overwhelmed and SI abated within the first few days of admission. Day of Discharge Assessment 05/24/20: Patient processed grief of leaving the affair and feels she has started that process no longer in denial or paralyzed there, having time to sort her thoughts and feelings here yet recognizing she has more work to do but feeling she has the energy and ability now to move forward. She is taking and tolerating the medications. SHe slept overnight with ativan, and is eating well, denies h/h/w, anxiety level is low at this time. She has future orientation and interest, showing volition and engagement appropriately with her stressors on the unit. We did discuss intentional action to change wellbutrin from XL to SR keeping with 150mg dose to see if that would support mood but reduce impact on sleep (future option may be to lower it to SR 100mg if sleep, or dry mouth or constipation continue) . She denies SI, intent or plan. SHe is future oriented and requesting discharge today. Physical Exam Psychiatric Orientation: alert and oriented x 3 Apperance: appropriately dressed and appropriately groomed Eye Contact: good eye contact Motor Behavior: steady gait and station and no abnormal motor movements Speech: normal rate/rhythm/volume of speech Affect: euthymic affect Thought Process: goal directed thought process and linear/logical thought process able to comment on her thoughts and feelings and where she is in the process of greif recognizing it is a process, feeling less distressed but understanding she has more work to do, feeling more capable to engage in further healing and no longer having SI, SIB urges, no intention nor plans Suicidal Thoughts: denies suicidal thoughts Homicidal Thoughts: denies homicidal thoughts Hallucinations: no auditory hallucinations and no visual hallucinations Cognition: recent memory grossly intact Estimated Intelligence: average estimated intelligence Insight: good insight Judgement: good judgement Vital Signs (Past 24 Hours) Last Vital Signs Temp 36.6 C 05/24/20 06:33 Pulse 79 05/24/20 06:33 Resp 16 05/24/20 06:33 BP 117/78 05/24/20 06:33 Pulse Ox 99 05/21/20 22:17 Principal Diagnosis MDD, single episode in remission, CURTIS Psychiatric Data Advance Directives Advance Directives Information Provided: Yes Advance Directives: No Mental Health Advance Directive: No Advance Directives on File: No Living Will: No Power of Concierge: No Advance Directives Reason:: Declines as Mental Health Visit. Risk Factors Assessment Male: No : Yes Health Problems: No Mental Health Diagnoses: Yes Substance Use Disorders: No Previous Attempt: No Family History of Suicide: No Previous Psychiatric Hospitalization: No Hopelessness: Yes Smoker: No Protective Factors Assessment : Yes Responsible for Young Children: No Employed: Yes Stable Relationships: No Good Rapport with Provider: Yes Discharge Data Lab Results 05/21/20 05/21/20 05/21/20 16:08 16:08 16:08 WBC RBC Hgb Hct MCV MCH MCHC RDW Std Deviation RDW Coeff of Capo Plt Count MPV Immature Gran % (Auto) Neut % (Auto) Lymph % (Auto) [place] % (Auto) Eos % (Auto) Baso % (Auto) Neut # (Auto) Lymph # (Auto) [place] # (Auto) Eos # (Auto) Baso # (Auto) Immature Gran # (Auto) Sodium Potassium Chloride Carbon Dioxide Anion Gap BUN Creatinine Est Cr Clr Drug Dosing Est GFR ( Amer) Est GFR (Non-Af Amer) BUN/Creatinine Ratio Glucose Calcium Total Bilirubin AST ALT Alkaline Phosphatase Total Protein Albumin Globulin Albumin/Globulin Ratio TSH Urine Color Yellow Urine Appearance Clear Urine pH 5.5 Ur Specific [place] 1.009 Urine Protein Negative Urine Glucose (UA) Negative Urine Ketones Negative Urine Blood Negative Urine Nitrite Negative Urine Bilirubin Negative Urine Urobilinogen Negative Ur Leukocyte Esterase Negative Urine Test Negative Salicylates Urine Opiates Screen Neg Ur Methadone, Qual Neg Acetaminophen Urine Barbiturates Neg Ur Phencyclidine (PCP) Neg U Amphetamin/Meth Scrn Neg MDMA (Ecstasy) Screen Pos H U Benzodiazepines Scrn Neg Ur Cocaine Metabolite Neg U Marijuana (THC) Screen Neg Ethyl Alcohol mg/dL SARS-CoV-2 Ag (Rapid) 05/21/20 05/21/20 05/21/20 16:37 16:37 16:37 WBC 6.40 RBC 4.91 Hgb 15.8 Hct 45.5 MCV 92.7 MCH 32.2 MCHC 34.7 RDW Std Deviation 40.8 RDW Coeff of Capo 12.0 Plt Count 239 MPV 11.5 H Immature Gran % (Auto) 0.2 Neut % (Auto) 74.6 Lymph % (Auto) 17.5 [place] % (Auto) 6.1 Eos % (Auto) 1.1 Baso % (Auto) 0.5 Neut # (Auto) 4.78 Lymph # (Auto) 1.12 L [place] # (Auto) 0.39 Eos # (Auto) 0.07 Baso # (Auto) 0.03 Immature Gran # (Auto) 0.01 Sodium 137 Potassium 3.8 Chloride 106 Carbon Dioxide 25 Anion Gap 6.0 BUN 7 Creatinine 0.91 Est Cr Clr Drug Dosing 93.7 Est GFR ( Amer) 100.2 Est GFR (Non-Af Amer) 86.5 BUN/Creatinine Ratio 7.3 L Glucose 101 H Calcium 9.3 Total Bilirubin 0.4 AST 8 L ALT 16 Alkaline Phosphatase 59 Total Protein 7.8 Albumin 4.0 Globulin 3.8 Albumin/Globulin Ratio 1.1 TSH 1.300 Urine Color Urine Appearance Urine pH Ur Specific [place] Urine Protein Urine Glucose (UA) Urine Ketones Urine Blood Urine Nitrite Urine Bilirubin Urine Urobilinogen Ur Leukocyte Esterase Urine Test Salicylates 3.6 Urine Opiates Screen Ur Methadone, Qual Acetaminophen < 2 L Urine Barbiturates Ur Phencyclidine (PCP) U Amphetamin/Meth Scrn MDMA (Ecstasy) Screen U Benzodiazepines Scrn Ur Cocaine Metabolite U Marijuana (THC) Screen Ethyl Alcohol mg/dL SARS-CoV-2 Ag (Rapid) 05/21/20 05/21/20 16:37 Unknown WBC RBC Hgb Hct MCV MCH MCHC RDW Std Deviation RDW Coeff of Capo Plt Count MPV Immature Gran % (Auto) Neut % (Auto) Lymph % (Auto) [place] % (Auto) Eos % (Auto) Baso % (Auto) Neut # (Auto) Lymph # (Auto) [place] # (Auto) Eos # (Auto) Baso # (Auto) Immature Gran # (Auto) Sodium Potassium Chloride Carbon Dioxide Anion Gap BUN Creatinine Est Cr Clr Drug Dosing Est GFR ( Amer) Est GFR (Non-Af Amer) BUN/Creatinine Ratio Glucose Calcium Total Bilirubin AST ALT Alkaline Phosphatase Total Protein Albumin Globulin Albumin/Globulin Ratio TSH Urine Color Urine Appearance Urine pH Ur Specific [place] Urine Protein Urine Glucose (UA) Urine Ketones Urine Blood Urine Nitrite Urine Bilirubin Urine Urobilinogen Ur Leukocyte Esterase Urine Test Salicylates Urine Opiates Screen Ur Methadone, Qual Acetaminophen Urine Barbiturates Ur Phencyclidine (PCP) U Amphetamin/Meth Scrn MDMA (Ecstasy) Screen U Benzodiazepines Scrn Ur Cocaine Metabolite U Marijuana (THC) Screen Ethyl Alcohol mg/dL < 3.0 SARS-CoV-2 Ag (Rapid) Negative Hospital Course (1) Suicidal ideation: Continue voluntary hospitalization, suicide checks for safety. Encourage group attendance and participation, work on healthy coping skills and discharge safety plan. Family meeting as appropriate 05/23 - Pt now denying SI - Family meeting today with - Pt encouraged to begin working on her written safety plan 05/24 -Pt is future oriented and motivated to engage in aftercare with therapist and PCM bridging medications to her 07/07/20 appt with [facility] and a psychiatric prescriber. SHe is no longer considered an imminent danger to self and can contract for safety able to discuss safety plan with coping skills, activities of distraction, supports to talk to and emergency contact options. SHe is requesting discharge and so outpatient care is the least restrictive and most appropriate setting for care with f/u at this time. (2) Depression: 05/22 - Reviewed diagnoses and treatment options, including medications and therapy. Reviewed medication options including continuing current medications and giving them more time to see full effect, trial of a different SSRI or SNRI. After discussion of options she opted to continue with her current medications. She would like to focus on working on self compassion. Coordinate w/ her OP therapy and [facility]/OP treatment. 05/23 - Continue current medication regimen - we did discuss brief symptoms of "jitteriness", shaking, increased productivity, and difficulty concentrating for 1-2 days after starting bupropion (prior to hospitalization). Pt educated signs and symptoms of bipolar disorder and encouraged to continue to monitor, especially with future medication adjustments. Pt does report having an uncle with bipolar disorder. - Family meeting conducted today via phone with , patient perceived the meeting went well and both are considering couples counseling - Continue to encourage participation in group and recreational programming, as well as development of healthy and effective coping strategies - Pt encouraged to begin working on her written safety plan 05/24 - move from wellbutrin XL 150mg to Wellbutrin SR 150mg to see if that will be less impactful on sleep (future move to SR 100mg could be considered if constipation, dry mouth or insomnia persist) (3) Anxiety: 05/22 - CURTIS with panic, continue home medications, including lorazepam prn, can also offer hydroxyzine prn 05/23 - Continue as above, encourage development of healthy and effective coping strategies - Continue individual therapy as outpatient 05/24 - continue lexapro 20mg and therapy, [facility] Name of Psychiatrist: Darius Oreilly Psychiatrist's Date of Appointment with Psychiatrist: 07/07/20 Time of Appointment with Psychiatrist: 8:15 a.m. Psychiatric Appointment Comment: on cancellation list for earlier appt [id number] [facility] Therapist Name of Therapist: Rahat Cyr Therapist's Date of Therapist Appointment: 05/28/20 Time of Therapist Appointment: 2:30 p.m. Therapy Appointment Comment: [address], [address], [place] [address] It Project Manager Name of It Project Manager: None Post Discharge Appointments Primary Care Physician Name Of Family Doctor: [facility] Date of Appointment with PCP: 05/27/20 Time of Appointment with PCP: 10:45 a.m. Provider Appointment Comment: In person - [address] Contact Information Discharge Discharge [address]: [address] [place] [address] Discharge Plan Discharge Items Patient Disposition: Home - Self-Care Reason For Visit: SUICIDAL IDEATION Discharge Diagnosis: Major Depressive Disorder Condition on Discharge: Good Activity: Resume your previous activity Non-emergency contact: Primary Care Provider and Therapist Call non-emergency contact if: you have any medication questions and your symptoms worsen Follow-up/Referrals: Rachael Samayoa, [Primary Care Provider] - Diet: Regular Addtl Attending Provider Instructions: WHO TO CALL AND WHEN: Medical Emergencies: For questions or emergencies related to your hospital stay, please contact the Inpatient Behavioral Health Unit at [phone]. A web site project manager is on-call 22/11 for the Behavioral Health Unit for em ergencies At any time you feel your situation is an emergency, you may also call 911 immediately. Maria G Vazquez Recommendations: 1. Follow through with your scheduled aftercare appointments. If unable to keep an appointment, please call to reschedule. 2. Take your medication only as prescribed. Medication should not be changed or stopped without the approval of your doctor. In the event of worsening symptoms or concerns about side effects, contact your doctor immediately. 3. Utilize new healthy coping skills, anger management skills, and stress management skills learned during your hospitalization. Journal feelings and process them with a support person. Identify stressors or situations that may result in relapse, deterioration or inappropriate behaviors and develop a plan to deal with those issues. 4. If your coping skills are ineffective and you are in crisis, contact your outpatient providers for direction. If unable to reach your providers, please call the CAN HELP LINE AT or go to the closest Emergency Room. 5. Avoid alcohol and un-prescribed drugs. 6. You have been provided with the Mental Health Advance Directives Pamphlet for your review. SPECIAL CARE INSTRUCTIONS: 1. Follow through with your scheduled aftercare appointments. If unable to keep an appointment, please call to reschedule. 2. Take your medication only as prescribed. Medication should not be changed or stopped without the approval of your doctor. In the event of worsening symptoms or concerns about side effects, contact your doctor immediately. 3. Utilize new healthy coping skills, anger management skills, and stress management skills learned during your hospitalization. Journal feelings and process them with a support person. Identify stressors or situations that may result in relapse, deterioration or inappropriate behaviors and develop a plan to deal with those issues. 4. If your coping skills are ineffective and you are in crisis, contact your outpatient providers for direction. If unable to reach your providers, please call the [facility] CRISIS LINE AT , go to the [facility] walk-in center at [address] [place] [address], [address], [place], or go to the closest Emergency Room. 5. Avoid alcohol and un-prescribed drugs. 6. You have been provided with the Mental Health Advance Directives Pamphlet for your review. AFTERCARE APPOINTMENTS: * Please call your insurance company prior to your scheduled appointment to confirm your aftercare providers are covered. Take your insurance information to your appointments. Pending Studies at Discharge: No Stand-Alone Forms: My [facility] [employer], Smoking Cessation Medications and DC Order Prescriptions: New bupropion HCl [Wellbutrin SR] 150 mg tablet sustained-release 12 hr 150 mg PO DAILY Qty: 30 RF: 0 lorazepam 0.5 mg Tablet 0.5 mg PO HS PRN (Reason: sleep) Qty: 30 RF: 0 Continued escitalopram oxalate [Lexapro] 20 mg Tablet 20 mg PO HS RF: 0 dicyclomine 20 mg Tablet 20 mg PO QID PRN (Reason: Abdominal Discomfort) RF: 0 rizatriptan 10 mg Tablet,Disintegrating 0 mg PO .COMPLEX PRN (Reason: Migraine Headache) RF: 0 norethindrone-e.estradiol-iron [05/21 (28)] 1 mg-20 mcg (21)/75 mg (7) tablet 1 tab PO HS RF: 0 lorazepam 0.5 mg Tablet 0.5 mg PO HS PRN (Reason: Insomnia) Qty: 30 RF: 0 Discontinued bupropion HCl 150 mg tablet extended release 24 hr 150 mg PO DAILY RF: 0 Discharge Orders: Discharge Order (Routine); Ordered 05/24/20 Ordered By: Jenny Edmondson Admission Data Admit Date/Time: 05/21/20 21:50 Attending Provider: Regina Abreu Admit Provider: Nathalie Felix Primary Care Provider: Rachael Samayoa Other Interventions: PSY Interdisciplinary Discharge Planning Last Done: 05/23/20 14:57 Coding Level of Care Code 68255 D/C day mgmt > 30 min Diagnoses Suicidal ideation R45.851 Depression F33.2 Depression Type: major depressive disorder Major depression recurrence: recurrent Active/Remission status: currently active Major depression episode severity: severe Psychotic features: without psychotic features Anxiety F41.9
[2020-05-25 09:27] LABS: MDA negative; MDEA negative; MDMA (Ecstasy) Urine, Confirm negative
== END 2020-05-24 11:34 | disposition home or self-care (01) | DRG 885 ==
LOC: ED 15:56 → 3S 21:50